=== PATIENT | male | born 1945 | race Caucasian/White ===

== ENCOUNTER 2023-07-12 15:20 | Inpatient (IN) ==
[2023-07-12] MEDS ORDERED: 0.9 % SODIUM CHLORIDE 1,000 ML IV ONE ×2 (16:57→18:43)
[2023-07-12 17:38] LABS: POC Calcium, Ionized 1.12 (1.16-1.32); POC Creatinine 1.6 (0.6-1.2); POC Potassium 4.3 (3.3-5.1)
[2023-07-12] MEDS: cefTRIAXone 1 GM VIAL IV SCH (19:36)
[2023-07-12 19:54] LABS: Appearance,Urine CLEAR (Clear); Bilirubin,Urine Negative (Negative); Color,Urine YELLOW; Culture Indicated,Urine No; Glucose,Urine (UA) >=500 mg/dL (Negative); Ketones,Urine 5 mg/dL (Negative); Leukocyte Esterase,Urine Negative /uL (Negative); Mucus,Urine FEW /hpf; Nitrate,Urine Negative (Negative); Protein,Urine Negative (Negative); Urine Blood Negative (Negative); Urine RBC 0 /hpf (0-3); Urine Squamous Epithelial Cell < 1 /hpf (0-4); Urine WBC < 1 /hpf (0-4); Urobilinogen,Urine Negative
[2023-07-12 19:57] LABS: Basophils # (Auto) 0.03 K/mcL (0.00-0.30); Basophils % (Auto) 0.3 % (0.0-2.0); Eosinophils # (Auto) 0.02 K/mcL (0.00-0.70); Eosinophils % (Auto) 0.2 % (0.0-7.0); Hematocrit 38.8 % (40.1-51.0); Hemoglobin 13.2 g/dL (13.7-17.5); Lymphocytes % (Auto) 6.1 % (15.5-49.0); Mean Cell Volume 93.3 fL (80.0-100.0); Mean Platelet Volume 10.3 fL (8.8-12.5); Monocytes # (Auto) 0.71 K/mcL (0.10-0.90); Monocytes % (Auto) 7.3 % (1.0-12.0); Neutrophils % (Auto) 85.6 % (38.0-78.0); Platelet Count 156 K/mcL (140-440); RBC 4.16 M/mcL (4.63-6.08); Red Cell Distribution Width 12.8 % (11.5-14.5); WBC 9.8 K/mcL (4.5-11.0)
[2023-07-12] MEDS ORDERED: VANCOMYCIN 1,500 MG in 0.9 % SODIUM CHLORIDE 500 ML IV ONE (20:47)
[2023-07-12] MEDS ORDERED: 0.9 % SODIUM CHLORIDE 1,000 ML IV SCH (21:00)
[2023-07-12 22:33] LABS: Hemoglobin A1C 8.2 % Hgb (4.0-6.0)
[2023-07-12 23:07] LABS: ALT/SGPT 139 U/L (<40); AST/SGOT 77 U/L (<40); Albumin 3.5 gm/dL (3.2-5.2); Albumin/Globulin Ratio 1.1 (1.0-2.3); Alkaline Phosphatase 109 U/L (39-117); Bilirubin,Total 0.9 mg/dL (0.1-1.0); Blood Urea Nitrogen 46 mg/dL (8-23); Calcium 9.3 mg/dL (8.6-10.4); Carbon Dioxide 25 mmol/L (22-30); Chloride 101 mmol/L (96-108); Globulin 3.2 gm/dL (2.2-3.7); Glomerular Filtration Rate 48; Glucose 192 mg/dL (70-105)
[2023-07-12] MEDS ORDERED: DEXTROSE 50% 50 ML VIAL IV PRN (23:44)
[2023-07-12] MEDS ORDERED: DEXTROSE 31 GM ORAL.SUSP PO PRN (23:44)
[2023-07-12] MEDS ORDERED: SENNOSIDES 1 TABLET PO PRN (23:44)
[2023-07-12] MEDS ORDERED: ONDANSETRON 4 MG/2 ML VIAL IV PRN (23:44)
[2023-07-12] MEDS ORDERED: ACETAMINOPHEN 325 MG TABLET PO PRN (23:44)
[2023-07-12] MEDS ORDERED: LACTULOSE 20 GM/30 ML ORAL.SOL PO PRN (23:44)
[2023-07-13] MEDS: INSULIN GLARGINE, HUMAN 1 UNIT/0.01 ML SQ SCH ×3 (00:15→21:23)
[2023-07-13] MEDS: 0.9 % SODIUM CHLORIDE 1,000 ML IV SCH ×5 (00:21→18:51)
[2023-07-13] MEDS: 0.9 % SODIUM CHLORIDE 10 ML SYRINGE IV SCH ×3 (05:45→21:27)
[2023-07-13 07:09] LABS: ALT/SGPT 113 U/L (<40); AST/SGOT 59 U/L (<40); Albumin 3.4 gm/dL (3.2-5.2); Albumin/Globulin Ratio 1.1 (1.0-2.3); Alkaline Phosphatase 99 U/L (39-117); Bilirubin,Direct 0.2 mg/dL (<0.3); Bilirubin,Total 0.7 mg/dL (0.1-1.0); Blood Urea Nitrogen 39 mg/dL (8-23); Calcium 8.9 mg/dL (8.6-10.4); Carbon Dioxide 24 mmol/L (22-30); Chloride 104 mmol/L (96-108); Glomerular Filtration Rate 57; Glucose 115 mg/dL (70-105); Lactate Dehydrogenase 179 U/L (135-225); Phosphorous 1.9 mg/dL (2.5-4.5); Triglycerides 271 mg/dL (<150); Uric Acid 5.9 mg/dL (2.5-8.0)
[2023-07-13] MEDS: LEVOTHYROXINE 75 MCG TABLET PO SCH (07:51)
[2023-07-13] MEDS: PANTOPRAZOLE 40 MG TABLET PO SCH ×2 (07:51→08:43)
[2023-07-13] MEDS: INSULIN LISPRO 1 UNIT/0.01 ML UNIT SQ SCH ×4 (07:52→21:58)
[2023-07-13] MEDS ORDERED: VANCOMYCIN PER PHARMACY IV SCH (09:00)
[2023-07-13] MEDS: VANCOMYCIN 1,000 MG in 0.9 % SODIUM CHLORIDE 250 ML IV SCH ×2 (09:24→21:24)
[2023-07-13] MEDS: ASPIRIN 81 MG TAB.CHEW PO SCH (09:28)
[2023-07-13] MEDS: ATORVASTATIN 40 MG TABLET PO SCH (09:28)
[2023-07-13] MEDS: CLOPIDOGREL 75 MG TABLET PO SCH (09:28)
[2023-07-13] MEDS: FLUoxetine HCL 20 MG CAPSULE PO SCH (09:29)
[2023-07-13] MEDS: DOCUSATE SODIUM 100 MG CAPSULE PO SCH ×2 (09:29→21:08)
[2023-07-13] MEDS: cefTRIAXone 1 GM VIAL IV SCH (18:44)
[2023-07-14] MEDS: 0.9 % SODIUM CHLORIDE 1,000 ML IV SCH ×3 (03:53→15:30)
[2023-07-14] MEDS: 0.9 % SODIUM CHLORIDE 10 ML SYRINGE IV SCH ×3 (05:14→20:21)
[2023-07-14 07:16] LABS: ALT/SGPT 66 U/L (<40); AST/SGOT 33 U/L (<40); Albumin 3.2 gm/dL (3.2-5.2); Albumin/Globulin Ratio 1.2 (1.0-2.3); Alkaline Phosphatase 79 U/L (39-117); Bilirubin,Direct < 0.2 mg/dL (0-0.3); Bilirubin,Total 0.5 mg/dL (0.1-1.0); Blood Urea Nitrogen 23 mg/dL (8-23); Calcium 8.6 mg/dL (8.6-10.4); Carbon Dioxide 21 mmol/L (22-30); Chloride 105 mmol/L (96-108); Globulin 2.7 gm/dL (2.2-3.7); Glomerular Filtration Rate 81; Glucose 101 mg/dL (70-105); Lactate Dehydrogenase 171 U/L (135-225); Phosphorous 2.2 mg/dL (2.5-4.5); Triglycerides 265 mg/dL (<150); Uric Acid 4.7 mg/dL (2.5-8.0)
[2023-07-14] MEDS: LEVOTHYROXINE 75 MCG TABLET PO SCH (07:54)
[2023-07-14] MEDS: INSULIN LISPRO 1 UNIT/0.01 ML UNIT SQ SCH ×4 (07:54→20:21)
[2023-07-14] MEDS: PANTOPRAZOLE 40 MG TABLET PO SCH ×2 (07:54)
[2023-07-14] MEDS: DOCUSATE SODIUM 100 MG CAPSULE PO SCH ×2 (08:43→20:20)
[2023-07-14] MEDS: ATORVASTATIN 40 MG TABLET PO SCH (08:43)
[2023-07-14] MEDS: ASPIRIN 81 MG TAB.CHEW PO SCH (08:43)
[2023-07-14] MEDS: CLOPIDOGREL 75 MG TABLET PO SCH (08:43)
[2023-07-14] MEDS: FLUoxetine HCL 20 MG CAPSULE PO SCH (08:43)
[2023-07-14] MEDS: INSULIN GLARGINE, HUMAN 1 UNIT/0.01 ML SQ SCH ×2 (09:06→20:21)
[2023-07-14] MEDS: VANCOMYCIN 1,000 MG in 0.9 % SODIUM CHLORIDE 250 ML IV SCH (10:12)
[2023-07-14] MEDS: VANCOMYCIN 1,250 MG in 0.9 % SODIUM CHLORIDE 500 ML IV SCH ×2 (12:24→20:21)
[2023-07-14 13:46] LABS: Basophils # (Auto) 0.01 K/mcL (0.00-0.30); Basophils % (Auto) 0.3 % (0.0-2.0); Eosinophils # (Auto) 0.01 K/mcL (0.00-0.70); Eosinophils % (Auto) 0.3 % (0.0-7.0); Hematocrit 38.3 % (40.1-51.0); Hemoglobin 13.1 g/dL (13.7-17.5); Lymphocytes # (Auto) 0.77 K/mcL (1.50-4.80); Lymphocytes % (Auto) 19.9 % (15.5-49.0); Mean Cell Volume 92.7 fL (80.0-100.0); Mean Corpuscular HGB Conc 34.2 g/dL (31.0-36.0); Mean Platelet Volume 10.9 fL (8.8-12.5); Monocytes # (Auto) 0.27 K/mcL (0.10-0.90); Platelet Count 131 K/mcL (140-440); RBC 4.13 M/mcL (4.63-6.08); Red Cell Distribution Width 12.4 % (11.5-14.5); WBC 3.9 K/mcL (4.5-11.0)
[2023-07-14] MEDS: cefTRIAXone 1 GM VIAL IV SCH (19:05)
[2023-07-15] MEDS: 0.9 % SODIUM CHLORIDE 10 ML SYRINGE IV SCH ×3 (05:22→20:44)
[2023-07-15 06:44] LABS: Basophils # (Auto) 0.02 K/mcL (0.00-0.30); Basophils % (Auto) 0.5 % (0.0-2.0); Eosinophils # (Auto) 0.06 K/mcL (0.00-0.70); Eosinophils % (Auto) 1.5 % (0.0-7.0); Hematocrit 38.2 % (40.1-51.0); Hemoglobin 13.2 g/dL (13.7-17.5); Lymphocytes % (Auto) 24.2 % (15.5-49.0); Mean Cell Volume 90.5 fL (80.0-100.0); Mean Corpuscular HGB Conc 34.6 g/dL (31.0-36.0); Mean Platelet Volume 10.5 fL (8.8-12.5); Monocytes # (Auto) 0.51 K/mcL (0.10-0.90); Monocytes % (Auto) 12.3 % (1.0-12.0); Platelet Count 129 K/mcL (140-440); RBC 4.22 M/mcL (4.63-6.08); WBC 4.1 K/mcL (4.5-11.0)
[2023-07-15 07:05] LABS: ALT/SGPT 49 U/L (<40); AST/SGOT 22 U/L (<40); Albumin 3.2 gm/dL (3.2-5.2); Albumin/Globulin Ratio 1.1 (1.0-2.3); Alkaline Phosphatase 78 U/L (39-117); Bilirubin,Direct < 0.2 mg/dL (0-0.3); Bilirubin,Total 0.4 mg/dL (0.1-1.0); Blood Urea Nitrogen 18 mg/dL (8-23); Calcium 8.6 mg/dL (8.6-10.4); Carbon Dioxide 19 mmol/L (22-30); Chloride 104 mmol/L (96-108); Globulin 2.8 gm/dL (2.2-3.7); Glomerular Filtration Rate 85; Glucose 154 mg/dL (70-105); Lactate Dehydrogenase 173 U/L (135-225); Phosphorous 2.4 mg/dL (2.5-4.5); Triglycerides 263 mg/dL (<150); Uric Acid 4.7 mg/dL (2.5-8.0)
[2023-07-15] MEDS: LEVOTHYROXINE 75 MCG TABLET PO SCH (08:15)
[2023-07-15] MEDS: ATORVASTATIN 40 MG TABLET PO SCH (08:15)
[2023-07-15] MEDS: DOCUSATE SODIUM 100 MG CAPSULE PO SCH ×2 (08:15→20:43)
[2023-07-15] MEDS: INSULIN LISPRO 1 UNIT/0.01 ML UNIT SQ SCH ×4 (08:15→20:43)
[2023-07-15] MEDS: PANTOPRAZOLE 40 MG TABLET PO SCH ×2 (08:16)
[2023-07-15] MEDS: ASPIRIN 81 MG TAB.CHEW PO SCH (08:16)
[2023-07-15] MEDS: CLOPIDOGREL 75 MG TABLET PO SCH (08:16)
[2023-07-15] MEDS: FLUoxetine HCL 20 MG CAPSULE PO SCH (08:16)
[2023-07-15] MEDS: VANCOMYCIN 1,250 MG in 0.9 % SODIUM CHLORIDE 500 ML IV SCH ×2 (09:56→20:43)
[2023-07-15] MEDS: INSULIN GLARGINE, HUMAN 1 UNIT/0.01 ML SQ SCH ×2 (09:56→20:44)
[2023-07-15] MEDS: MAGNESIUM SULFATE 2 GM/50 ML BAG IV SCH ×2 (12:48→14:37)
[2023-07-15] MEDS: cefTRIAXone 1 GM VIAL IV SCH (18:32)
[2023-07-15] MEDS: metFORMIN 500 MG TABLET PO SCH (20:43)
[2023-07-16] MEDS: 0.9 % SODIUM CHLORIDE 10 ML SYRINGE IV SCH ×2 (05:28→13:53)
[2023-07-16 07:11] LABS: ALT/SGPT 42 U/L (<40); AST/SGOT 21 U/L (<40); Albumin 3.3 gm/dL (3.2-5.2); Albumin/Globulin Ratio 1.1 (1.0-2.3); Alkaline Phosphatase 88 U/L (39-117); Bilirubin,Direct < 0.2 mg/dL (0-0.3); Bilirubin,Total 0.4 mg/dL (0.1-1.0); Blood Urea Nitrogen 18 mg/dL (8-23); Calcium 8.8 mg/dL (8.6-10.4); Carbon Dioxide 24 mmol/L (22-30); Chloride 104 mmol/L (96-108); Globulin 2.9 gm/dL (2.2-3.7); Glomerular Filtration Rate 81; Glucose 191 mg/dL (70-105); Lactate Dehydrogenase 195 U/L (135-225); Phosphorous 2.5 mg/dL (2.5-4.5); Triglycerides 245 mg/dL (<150); Uric Acid 4.6 mg/dL (2.5-8.0)
[2023-07-16] MEDS: INSULIN LISPRO 1 UNIT/0.01 ML UNIT SQ SCH ×2 (07:36→11:37)
[2023-07-16] MEDS: metFORMIN 500 MG TABLET PO SCH (07:37)
[2023-07-16] MEDS: PANTOPRAZOLE 40 MG TABLET PO SCH (07:37)
[2023-07-16] MEDS: LEVOTHYROXINE 75 MCG TABLET PO SCH (07:37)
[2023-07-16 07:41] LABS: Basophils # (Auto) 0.03 K/mcL (0.00-0.30); Basophils % (Auto) 0.4 % (0.0-2.0); Eosinophils # (Auto) 0.09 K/mcL (0.00-0.70); Eosinophils % (Auto) 1.3 % (0.0-7.0); Hematocrit 37.7 % (40.1-51.0); Hemoglobin 13.2 g/dL (13.7-17.5); Lymphocytes # (Auto) 1.27 K/mcL (1.50-4.80); Lymphocytes % (Auto) 18.5 % (15.5-49.0); Mean Cell Volume 90.8 fL (80.0-100.0); Mean Platelet Volume 10.8 fL (8.8-12.5); Monocytes # (Auto) 1.07 K/mcL (0.10-0.90); Monocytes % (Auto) 15.6 % (1.0-12.0); Neutrophils % (Auto) 63.6 % (38.0-78.0); Platelet Count 123 K/mcL (140-440); RBC 4.15 M/mcL (4.63-6.08); WBC 6.9 K/mcL (4.5-11.0)
[2023-07-16] MEDS ORDERED: MAGNESIUM OXIDE 400 MG TABLET PO SCH (09:00)
[2023-07-16] MEDS: ASPIRIN 81 MG TAB.CHEW PO SCH (09:10)
[2023-07-16] MEDS: FLUoxetine HCL 20 MG CAPSULE PO SCH (09:10)
[2023-07-16] MEDS: ATORVASTATIN 40 MG TABLET PO SCH (09:10)
[2023-07-16] MEDS: CLOPIDOGREL 75 MG TABLET PO SCH (09:10)
[2023-07-16] MEDS: DOCUSATE SODIUM 100 MG CAPSULE PO SCH (09:11)
[2023-07-16] MEDS: INSULIN GLARGINE, HUMAN 1 UNIT/0.01 ML SQ SCH (09:11)
[2023-07-16] MEDS: VANCOMYCIN 1,250 MG in 0.9 % SODIUM CHLORIDE 500 ML IV SCH (09:14)
== END 2023-07-16 14:20 | disposition home or self-care (01) | DRG 872 ==
LOC: ED 15:20 → ICU 23:32
PROVIDERS: ADMIT Internal Medicine; ATTEND Internal Medicine